=== PATIENT | male | born 1940 | race Caucasian/White ===

== ENCOUNTER 2020-09-27 15:03 | Outpatient (CLI) | payer MEDICARE, SELFPAY ==
--- NOTE | ~2020-09-27 | US_ITS ---
EXAMINATION: US carotid duplex BI DATE: 09/27/2020 16:02 INDICATION: Right carotid stenosis. TECHNIQUE: Grayscale, color Doppler, and pulsed Doppler images of the cervical carotid arteries were obtained. The degree of vessel stenosis is placed in one of the following categories: normal, <50%, 5 0-69%, >=70% but less than near-occlusion, near-occlusion, or total occlusion. Note that percent sten osis relative to normal distal artery lumen diameter is indirectly measured from velocity measurement s as described by Fede, et al. Radiology 2003; 229:340-346. COMPARISON: Ultrasound 12/30/2018 FINDINGS: RIGHT: The right common carotid artery (CCA) peak systolic velocity (PSV) is 79 cm/s. The right internal car otid artery (ICA) PSV is 140 cm/s. The right ICA end-diastolic velocity (EDV) is 32 cm/s. The right I CA/CCA PSV ratio is 1.8. Grayscale and color Doppler images yield an estimate of >=50% diameter reduc tion from plaque in the ICA. There is antegrade flow in the right vertebral artery. LEFT: There is a stent in the left carotid artery. The left CCA PSV is 119 cm/s. The left ICA PSV is 83 cm/ s. The left ICA EDV is 25 cm/s. The left ICA/CCA PSV ratio is <1. Grayscale and color Doppler images yield an estimate of <50% diameter reduction from plaque in the ICA. There is antegrade flow in the l eft vertebral artery. IMPRESSION: 1. 50-69% stenosis in the right internal carotid artery. 2. <50% stenosis in the left internal carotid artery. Stent in left carotid artery. Reviewed, dictated and finalized at location A. IMPRESSION: 1. 50-69% stenosis in the right internal carotid artery. 2. <50% stenosis in the left internal carotid artery. Stent in left carotid ilda couch.
== END 2020-09-27 15:04 | disposition home or self-care (01) ==
PROVIDERS: PCP Internal Medicine; Visit Provider Internal Medicine Cardiovascular Disease
DX: I65.23 Occlusion and stenosis of bilateral carotid arteries (principal)
CPT/HCPCS: 93880

== ENCOUNTER 2021-01-02 09:08 | Outpatient (CLI) | payer MEDICARE, SELFPAY ==
[2021-01-02 09:55] LABS: Alanine Aminotransferase 32 U/L (4-50); Alkaline Phosphatase 29 U/L (38-126); Anion Gap 6 mmol/L (8-16); Aspartate Amino Transferase 36 U/L (17-59); Bilirubin,Total 1.4 mg/dL (0.2-1.3); Blood Urea Nitrogen 19 mg/dL (9-20); Calcium 8.6 mg/dL (8.4-10.2); Carbon Dioxide 29 mmol/L (22-30); Chloride 101 mmol/L (98-107); Cholesterol 90 mg/dL (0-200); Estimated Glomerular Filt Rate > 60; Glucose 124 mg/dL (75-110); HDL Direct 28 mg/dL; Potassium 4.9 mmol/L (3.4-5.0); Sodium 136 mmol/L (137-145); Triglycerides 93 mg/dL (<150)
[2021-01-02 10:04] LABS: LDL Cholesterol Direct 43 mg/dL
== END 2021-01-02 09:09 | disposition home or self-care (01) ==
PROVIDERS: PCP Internal Medicine; Visit Provider Internal Medicine Cardiovascular Disease
DX: I25.118 Atherosclerotic heart disease of native coronary artery with other forms of angina pectoris (principal); I65.23 Occlusion and stenosis of bilateral carotid arteries; I10 Essential (primary) hypertension
CPT/HCPCS: 36415; 80053; 80061

== ENCOUNTER 2021-05-06 07:18 | Outpatient (CLI) | payer MEDICARE, SELFPAY ==
--- NOTE | ~2021-05-06 | MR_ITS ---
EXAMINATION: MR hip RT wo con DATE: 05/06/2021 08:30 INDICATION: Right hip pain. TECHNIQUE: Magnetic resonance imaging (MRI) of the right hip was performed without intravenous contra st. Sequences included axial and coronal PD-weighted FS FSE and axial T1-weighted FSE of the pelvis. Sequences of the hip included 2D FIESTA, T1-weighted fast GRE, and axial, coronal, and sagittal PD-we ighted FS FSE. COMPARISON: Right hip radiographs 04/26/2021 FINDINGS: Bones/cartilage: Bone alignment is normal. There is mild lumbar spondylosis. The hips demonstrate tiny marginal osteop hytes. Small ubyrg-fe-lurp images of right hip demonstrate shallow partial-thickness cartilage loss a nd a small acetabular subchondral cyst. Labrum: There is a tear of the right acetabular labrum anterosuperiorly. Fluid: There is no hip joint effusion. No significant trochanteric bursitis. Soft tissues: The gluteus minimus and medius tendons are normal. There is mild bilateral iliopsoas tendinopathy. Th ere is moderate tendinopathy of the hamstring origins bilaterally. There is a small partial tear of l eft hamstring origin. The prostate is mildly enlarged. There is diverticulosis of the colon without e vidence of diverticulitis. IMPRESSION: 1. No fracture. 2. Mild osteoarthritis of the hips. Reviewed, dictated and finalized at location A.
== END 2021-05-06 07:19 | disposition home or self-care (01) ==
PROVIDERS: PCP Internal Medicine; Visit Provider Orthopaedic Surgery
DX: M16.0 Bilateral primary osteoarthritis of hip (principal)
CPT/HCPCS: 73721

== ENCOUNTER 2021-05-16 10:29 | Outpatient (CLI) | payer MEDICARE, SELFPAY ==
--- NOTE | ~2021-05-16 | XR_ITS ---
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 TECHNIQUE: A time-out was performed to verify the patient's name, date of , and procedure to b e performed. The procedure including the risks, benefits, and alternatives was discussed with the pat ient. Risks discussed included bleeding and infection. The patient understood the risks and agreed to proceed. The skin overlying the right hip joint was prepped and draped in usual sterile fashion. A nesthetic was administered with 1% lidocaine subcutaneously. A 22 G needle was advanced under fluoro scopic guidance into the joint. Injection of 1 mL of Omnipaque 240 confirmed intra-articular positio n of the needle. Subsequently, injectate consisting of 7 mm vague 5:2 mixture of 1% lidocaine: 10 mg /mL Kenalog for a total dosage of 20 mg Kenalog was instilled. Washout of contrast was seen confirmin g intra-articular administration. The needle was removed and the entry site was cleaned and dressed. There were no immediate complications. Fluoroscopy exposure time was 0.01 minutes. The total number of images was 2. FINDINGS: Real-time fluoroscopy demonstrates the needle in the right hip joint. Patient's pain prior to procedure:2/10. Patient's pain following the procedure: 0/10. IMPRESSION: 1. Right hip joint injection of local anesthetic and steroid with decrease in the patient's presentin g pain. Reviewed, dictated and finalized at location A. IMPRESSION: 1. Right hip joint injection of local anesthetic and steroid with decrease in t he patient's presenting pain.
== END 2021-05-16 10:30 | disposition home or self-care (01) ==
LOC: ANHIMG 10:31
PROVIDERS: PCP Internal Medicine; Visit Provider Orthopaedic Surgery
DX: M16.11 Unilateral primary osteoarthritis, right hip (principal)
CPT/HCPCS: 20610; 77002; J3301; Q9966

== ENCOUNTER 2021-08-25 12:19 | Outpatient (CLI) | payer MEDICARE, SELFPAY ==
--- NOTE | ~2021-08-25 | CT_ITS ---
EXAMINATION: CTA chest PE protocol EXAM DATE: 08/25/2021 12:46 INDICATION: Right ventricular enlargement. TECHNIQUE: Spiral CTA of the chest (pulmonary arteries) was performed with 100 cc Omnipaque 350 intr avenous contrast injection. Images were acquired during the pulmonary arterial phase. Coronal maxi mum intensity projection 3D-reconstructions were created by the technologist on dedicated workstation . Axial, coronal and sagittal reformatted images were reviewed. The dose-length product (DLP) for t his examination was 820.35 mGy-cm. The exposure was tailored according to patient size (auto mA exp osure control), and iterative reconstruction (ASIR) was used as additional dose reduction technique. Comparison is made to prior examination from 2010. FINDINGS: Pulmonary arteries are well opacified and without intraluminal filling defects. No thora cic aortic dissection. Bibasilar subsegmental atelectasis. Right upper lobe calcified granuloma. Th ere are no pleural or pericardial effusions. Tracheobronchial tree is patent. There is no mediast inal, hilar or axillary lymphadenopathy. There is no pneumothorax. There is cardiomegaly. There are sternotomy wires, and cardiac/coronary surgical changes. Correlate with prior history. Mild emphy sema. There is hepatic steatosis. Cholecystectomy clips. There is thoracic spondylosis without oste oblastic or osteolytic lesions identified. IMPRESSION: 1. No pulmonary emboli or acute findings. 2. Cardiomegaly. 3. Bibasilar subsegmental atelectasis. 4. Hepatic steatosis. Reviewed, dictated and finalized at location B.
[2021-08-25 12:42] LABS: Estimated Glomerular Filt Rate > 60
== END 2021-08-25 12:20 | disposition home or self-care (01) ==
LOC: ANHIMG 12:22
PROVIDERS: PCP Internal Medicine; Visit Provider Internal Medicine Cardiovascular Disease
DX: I51.7 Cardiomegaly (principal); R91.8 Other nonspecific abnormal finding of lung field; K76.0 Fatty (change of) liver, not elsewhere classified
CPT/HCPCS: 71275; Q9967

== ENCOUNTER 2022-07-26 07:04 | Outpatient (CLI) | payer MEDICARE, SELFPAY ==
[2022-07-26 08:17] LABS: Alanine Aminotransferase 41 U/L (6-50); Albumin Level 4.1 g/dL (3.5-5.1); Alkaline Phosphatase 39 U/L (38-126); Anion Gap 10 mmol/L (8-16); Aspartate Amino Transferase 35 U/L (17-59); Bilirubin,Total 1.4 mg/dL (0.2-1.3); Blood Urea Nitrogen 19 mg/dL (9-20); Calcium 8.4 mg/dL (8.4-10.2); Carbon Dioxide 28 mmol/L (22-30); Chloride 99 mmol/L (98-107); Cholesterol 111 mg/dL (0-200); Estimated Glomerular Filt Rate > 60; Glucose 150 mg/dL (65-110); HDL Direct 36 mg/dL; Potassium 4.2 mmol/L (3.4-5.0); Sodium 137 mmol/L (137-145); Triglycerides 140 mg/dL (<150)
[2022-07-26 08:28] LABS: LDL Cholesterol Direct 44 mg/dL
== END 2022-07-26 07:05 | disposition home or self-care (01) ==
PROVIDERS: PCP Internal Medicine; Visit Provider Internal Medicine Cardiovascular Disease
DX: E78.2 Mixed hyperlipidemia (principal); I25.118 Atherosclerotic heart disease of native coronary artery with other forms of angina pectoris
CPT/HCPCS: 36415; 80053; 80061

== ENCOUNTER 2022-07-30 08:03 | Outpatient (CLI) | payer MEDICARE, SELFPAY ==
--- NOTE | ~2022-07-30 | US_ITS ---
EXAMINATION: US carotid duplex BI DATE: 07/30/2022 12:31 INDICATION: Bilateral carotid artery atherosclerosis and stenosis. TECHNIQUE: Grayscale, color Doppler, and pulsed Doppler images of the cervical carotid arteries were obtained. The degree of vessel stenosis is placed in one of the following categories: normal, <50%, 5 0-69%, >=70% but less than near-occlusion, near-occlusion, or total occlusion. Note that percent sten osis relative to normal distal artery lumen diameter is indirectly measured from velocity measurement s as described by Fede, et al. Radiology 2003; [id number]:340-346. COMPARISON: None. FINDINGS: RIGHT: The right common carotid artery (CCA) peak systolic velocity (PSV) is 62 cm/s. The right internal car otid artery (ICA) PSV is 96 cm/s. The right ICA end-diastolic velocity (EDV) is 24 cm/s. The right IC A/CCA PSV ratio is 1.5. Grayscale and color Doppler images yield an estimate of <50% diameter reducti on from plaque in the ICA. The external carotid artery (ECA) PSV is 91 cm/s. There is antegrade flow in the right vertebral artery. LEFT: The left CCA PSV is 77 cm/s. Vascular stent is seen at the left carotid bulb with small amount of int raluminal plaque. The left ICA PSV is 77 cm/s. The left ICA EDV is 23 cm/s. The left ICA/CCA PSV rati o is 1.0. Grayscale and color Doppler images yield an estimate of <50% diameter reduction from plaque in the ICA. The ECA PSV is 155 cm/s. There is antegrade flow in the left vertebral artery. IMPRESSION: 1. <50% stenosis in the right internal carotid artery. 2. Stent in the left carotid bulb with <50% stenosis from small amount of plaque in the left internal carotid artery. Reviewed, dictated and finalized at location A. IMPRESSION: 1. <50% stenosis in the right internal carotid artery. 2. Stent in the left carotid bulb with <50% stenosis from small amount of plaqu e in the left internal carotid artery.
== END 2022-07-30 08:04 | disposition home or self-care (01) ==
PROVIDERS: PCP Internal Medicine; Visit Provider Internal Medicine Cardiovascular Disease
DX: I65.23 Occlusion and stenosis of bilateral carotid arteries (principal)
CPT/HCPCS: 93880

== ENCOUNTER 2024-01-29 13:24 | Outpatient (CLI) | payer MEDICARE, SELFPAY ==
--- NOTE | ~2024-01-29 | XR_ITS ---
EXAMINATION: XR knee RT min 4V DATE: 01/29/2024 13:45 INDICATION: Bilateral primary osteoarthritis of knee. TECHNIQUE: 4 views of right knee including standing views were obtained. COMPARISON: Right knee radiographs 11/01/2022 FINDINGS: Bone alignment is normal. No fracture. 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 There is severe osteoarthritis o f medial and lateral compartments and mild osteoarthritis of patellofemoral compartment. No knee join t effusion. There are surgical clips in the medial thigh. IMPRESSION: 1. Severe right knee osteoarthritis. Reviewed, dictated and finalized at location A. [employer] TECHNICIAN
== END 2024-01-29 13:25 | disposition home or self-care (01) ==
PROVIDERS: PCP Internal Medicine; Visit Provider Orthopaedic Surgery
DX: M17.0 Bilateral primary osteoarthritis of knee (principal)
CPT/HCPCS: 73564

== ENCOUNTER 2024-07-20 09:02 | Outpatient (CLI) | payer MEDICARE, SELFPAY ==
--- NOTE | ~2024-07-20 | XR_ITS ---
EXAMINATION: XR knee RT min 4V DATE: 07/20/2024 09:26 INDICATION: Bilateral primary osteoarthritis of knee. TECHNIQUE: 4 views of right knee were obtained. COMPARISON: Right knee radiographs 01/29/2024 FINDINGS: Bone alignment is normal. No fracture. 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 There is severe osteoarthritis of me dial and lateral compartments and mild osteoarthritis of patellofemoral compartment. No knee joint ef fusion. IMPRESSION: 1. Severe right knee osteoarthritis. Reviewed, dictated and finalized at location A.
--- NOTE | ~2024-07-20 | XR_ITS ---
EXAMINATION: XR knee LT min 4V DATE: 07/20/2024 09:26 INDICATION: Bilateral primary osteoarthritis of knee. TECHNIQUE: 4 views of left knee including weight-bearing views were obtained. COMPARISON: None. FINDINGS: Bone alignment is normal. No fracture. There is severe osteoarthritis of lateral compartmen t and mild osteoarthritis of medial and patellofemoral compartments. No knee joint effusion. There is a 2 mm loose body in the medial compartment posteriorly. IMPRESSION: 1. Severe left knee osteoarthritis. 2. Small knee joint loose body. Reviewed, dictated and finalized at location A.
== END 2024-07-20 09:03 | disposition home or self-care (01) ==
PROVIDERS: PCP Internal Medicine; Visit Provider Orthopaedic Surgery
DX: M17.0 Bilateral primary osteoarthritis of knee (principal); M23.42 Loose body in knee, left knee
CPT/HCPCS: 73564